=== PATIENT | female | born 1960 | race Two or more races ===

== ENCOUNTER 2023-06-28 07:35 | Day surgery (SDC) | payer OTHER ==
[~2023-06-28] VITALS: Ht 167.6 cm; Wt 82.6 kg
[~2023-06-28 07:35] MED LIST: AMITRIPTYLINE H50 MG PO; CITALOPRAM HBR40 MG PO; CLONAZEPAM1 MG PO; EZALLOR SPRINKL20 MG PO; GLIPIZIDE XL5 MG PO; METFORMIN HCL500 M2 PO
[2023-06-28] MEDS ORDERED: COLACE100 MG PO (15:20)
[2023-06-28] MEDS ORDERED: TRAM1TAB98 PO (15:20)
== END 2023-06-28 19:00 | disposition home or self-care (01) ==
LOC: CIR.AMB 07:35
PROVIDERS: ATTEND Surgery
DX: K62.1 Rectal polyp (principal); K62.89 Other specified diseases of anus and rectum; Z20.822 Contact with and (suspected) exposure to COVID-19